=== PATIENT | male | born 1990 | race African-American/Black ===

== ENCOUNTER 2016-12-06 08:16 | Emergency (ER) | payer SELFPAY | END 2016-12-06 09:45 | disposition home or self-care (01) | LOC: D.ER 08:16 | DX: S29.9XXA Unspecified injury of thorax, initial encounter (principal); V89.2XXA Person injured in unspecified motor-vehicle accident, traffic, initial encounter; Y93.89 Activity, other specified; Y92.410 Unspecified street and highway as the place of occurrence of the external cause; M94.0 Chondrocostal junction syndrome [Tietze]; F32.9 Major depressive disorder, single episode, unspecified; E87.6 Hypokalemia; F17.200 Nicotine dependence, unspecified, uncomplicated ==

== ENCOUNTER 2017-03-01 02:21 | Emergency (ER) | payer SELFPAY | END 2017-03-01 03:20 | disposition home or self-care (01) | LOC: D.ER 02:21 | DX: S60.221A Contusion of right hand, initial encounter (principal); W22.8XXA Striking against or struck by other objects, initial encounter; Y93.89 Activity, other specified; Y92.019 Unspecified place in single-family (private) house as the place of occurrence of the external cause; S61.411A Laceration without foreign body of right hand, initial encounter; M94.0 Chondrocostal junction syndrome [Tietze]; F32.9 Major depressive disorder, single episode, unspecified; E87.6 Hypokalemia ==

== ENCOUNTER 2017-04-19 13:21 | Emergency (ER) | payer SELFPAY ==
[2017-04-19 13:58] LABS: BASOPHILS 0.5 % (0-2); EOSINOPHILS 1.7 % (0-7); HEMATOCRIT 39.9 % (42.0-54.0); HEMOGLOBIN 13.6 g/dL (13.5-17.5); IMMATURE GRANULOCYTES 0.2 % (0-5); LYMPHOCYTES 37.4 % (15-50); MCH 30.9 pg (26.0-34.0); MCHC 34.1 g/dL (31.0-37.0); MCV 90.7 fL (80.0-100.0); MEAN PLATELET VOLUME 10.1 fL (7.4-10.4); NEUTROPHILS 53.2 % (40-80); RDW 13.5 % (11.5-14.5)
[2017-04-19 14:10] LABS: PLATELET COUNT 194 10x3/uL (130-400)
[2017-04-19 14:14] LABS: ALBUMIN 3.8 g/dL (3.4-5.0); ANION GAP 12.8 mmol/L (8-16); BILIRUBIN - TOTAL 0.73 mg/dL (0.2-1.3); CARBON DIOXIDE 25.4 mmol/L (21.0-32.0); CREATININE - SERUM 1.3 mg/dL (0.6-1.3); POTASSIUM - SERUM 3.2 mmol/L (3.5-5.1); PROTEIN - SERUM 7.2 g/dL (6.4-8.2)
== END 2017-04-19 16:38 | disposition home or self-care (01) ==
LOC: D.ER 13:21
PROVIDERS: Emergency Medicine
DX: R55 Syncope and collapse (principal); R00.1 Bradycardia, unspecified; E87.6 Hypokalemia; F32.9 Major depressive disorder, single episode, unspecified

== ENCOUNTER → 2017-06-18 15:06 | Emergency (ER) | payer SELFPAY | END | disposition left against medical advice (07) | LOC: D.ER 15:06 | DX: Z02.9 Encounter for administrative examinations, unspecified (principal) ==

== ENCOUNTER 2017-06-28 09:03 | Emergency (ER) | payer SELFPAY | END 2017-06-28 11:18 | disposition home or self-care (01) | LOC: D.ER 09:03 | DX: K02.9 Dental caries, unspecified (principal); K08.89 Other specified disorders of teeth and supporting structures; F17.200 Nicotine dependence, unspecified, uncomplicated ==

== ENCOUNTER 2017-07-29 19:03 | Emergency (ER) | payer SELFPAY ==
[2017-07-29 20:26] LABS: BASOPHILS 0.2 % (0-2); EOSINOPHILS 0 % (0-7); HEMATOCRIT 38.7 % (42.0-54.0); HEMOGLOBIN 13.2 g/dL (13.5-17.5); IMMATURE GRANULOCYTES 0.2 % (0-5); LYMPHOCYTES 15.1 % (15-50); MCH 31.1 pg (26.0-34.0); MCHC 34.1 g/dL (31.0-37.0); MCV 91.1 fL (80.0-100.0); MEAN PLATELET VOLUME 10.2 fL (7.4-10.4); NEUTROPHILS 71.5 % (40-80); PLATELET COUNT 159 10x3/uL (130-400); RBC 4.25 10x6/uL (4.20-6.10); RDW 13.9 % (11.5-14.5); WBC 9.5 10x3/uL (4.8-10.8)
[2017-07-29 20:33] LABS: INR 1.3 (0.85-1.17); PROTIME 16.1 SECONDS (11.6-15.0)
[2017-07-29 20:36] LABS: ALBUMIN 3.5 g/dL (3.4-5.0); ANION GAP 12.1 mmol/L (8-16); BILIRUBIN - TOTAL 0.44 mg/dL (0.2-1.3); CALCIUM 8.5 mg/dL (8.5-10.1); CARBON DIOXIDE 25.4 mmol/L (21.0-32.0); CREATININE - SERUM 1.5 mg/dL (0.6-1.3); MAGNESIUM - SERUM 1.6 mg/dL (1.8-2.4); POTASSIUM - SERUM 3.5 mmol/L (3.5-5.1); PROTEIN - SERUM 7.3 g/dL (6.4-8.2)
[2017-07-29 21:37] LABS: APPEARANCE CLEAR (CLEAR); BACTERIA FEW /hpf (NONE SEEN); BILIRUBIN NEGATIVE (NEGATIVE); COLOR DK YELLOW (YELLOW); EPITHELIAL CELLS 0-5 /hpf (0-5); GLUCOSE NEGATIVE (NEGATIVE); KETONE NEGATIVE (NEGATIVE); LEUKOCYTE ESTERASE 1+ (NEGATIVE); MUCUS <1+ /lpf (NONE SEEN); NITRITE NEGATIVE (NEGATIVE); PROTEIN NEGATIVE (NEGATIVE); RED CELLS - URINE 0-5 /hpf (0-5); SPECIFIC GRAVITY 1.005 (1.005-1.020); WHITE CELLS - URINE 25-50 /hpf (0-5)
== END 2017-07-29 23:16 | disposition home or self-care (01) ==
LOC: D.ER 19:03
PROVIDERS: Emergency Medicine; Nurse Practitioner Family
DX: J18.9 Pneumonia, unspecified organism (principal); R50.9 Fever, unspecified

== ENCOUNTER 2017-10-02 19:43 | Emergency (ER) | payer SELFPAY | END 2017-10-02 20:20 | disposition home or self-care (01) | LOC: D.ER 19:43 | DX: R07.9 Chest pain, unspecified (principal); K08.89 Other specified disorders of teeth and supporting structures; F17.200 Nicotine dependence, unspecified, uncomplicated; R00.1 Bradycardia, unspecified ==

== ENCOUNTER 2017-11-19 20:14 | Emergency (ER) | payer SELFPAY | END 2017-11-19 21:26 | disposition home or self-care (01) | LOC: D.ER 20:14 | DX: G89.18 Other acute postprocedural pain (principal); F17.200 Nicotine dependence, unspecified, uncomplicated ==

== ENCOUNTER 2017-12-25 12:34 | Emergency (ER) | payer MEDICAID | END 2017-12-25 16:04 | disposition home or self-care (01) | LOC: D.ER 12:34 | DX: K08.89 Other specified disorders of teeth and supporting structures (principal); K05.30 Chronic periodontitis, unspecified; F17.200 Nicotine dependence, unspecified, uncomplicated ==

== ENCOUNTER 2018-01-21 21:07 | Emergency (ER) | payer MEDICAID | END 2018-01-21 22:33 | disposition home or self-care (01) | LOC: D.ER 21:07 | DX: K04.7 Periapical abscess without sinus (principal); K08.89 Other specified disorders of teeth and supporting structures; F17.200 Nicotine dependence, unspecified, uncomplicated ==

== ENCOUNTER 2018-06-16 21:40 | Emergency (ER) | payer SELFPAY ==
[~2018-06-16] VITALS: Ht 193 cm; Wt 93.2 kg
[2018-06-16 21:44] VITALS: Ht 193 cm; Wt 93.2 kg
[2018-06-16] MEDS ORDERED: TORADOL10 MG PO (22:50)
[2018-06-16 23:06] VITALS: BP 130/67
== END 2018-06-16 23:05 | disposition home or self-care (01) ==
LOC: D.ER 21:40
DX: S60.221A Contusion of right hand, initial encounter (principal); X58.XXXA Exposure to other specified factors, initial encounter; Y93.89 Activity, other specified; Y92.019 Unspecified place in single-family (private) house as the place of occurrence of the external cause

== ENCOUNTER 2018-06-29 22:40 | Emergency (ER) | payer SELFPAY ==
[~2018-06-29] VITALS: Ht 193 cm; Wt 84.1 kg
[~2018-06-29 22:40] MED LIST: TORADOL10 MG PO
[2018-06-29 22:52] VITALS: Ht 193 cm; Wt 84.1 kg
[2018-06-30] MEDS ORDERED: MUCUS RELIEF400 MG PO (01:12)
[2018-06-30] MEDS ORDERED: ZPAK PO (01:12)
[2018-06-30] MEDS ORDERED: PROAIR HFA8.5 GM INH (01:12)
[2018-06-30 01:31] VITALS: BP 126/69
== END 2018-06-30 01:31 | disposition home or self-care (01) ==
LOC: D.ER 22:40
DX: J40 Bronchitis, not specified as acute or chronic (principal); R09.89 Other specified symptoms and signs involving the circulatory and respiratory systems

== ENCOUNTER 2018-11-27 17:42 | Emergency (ER) | payer SELFPAY ==
[~2018-11-27] VITALS: Ht 193 cm; Wt 93.2 kg
[~2018-11-27 17:42] MED LIST changes: +MUCUS RELIEF400 MG PO; +PROAIR HFA8.5 GM INH; +ZPAK PO
[2018-11-27 18:18] VITALS: Ht 193 cm; Wt 93.2 kg
[2018-11-27] MEDS ORDERED: AMOXICILLIN875 MG PO (19:39)
[2018-11-27] MEDS ORDERED: CIPRODEX OTIC7.5 ML LEFT EAR (19:39)
[2018-11-27 19:59] VITALS: BP 118/62
== END 2018-11-27 20:00 | disposition home or self-care (01) ==
LOC: D.ER 17:42
DX: H92.02 Otalgia, left ear (principal); J02.9 Acute pharyngitis, unspecified

== ENCOUNTER 2019-05-04 17:38 | Emergency (ER) | payer SELFPAY ==
[~2019-05-04 17:38] MED LIST changes: +AMOXICILLIN875 MG PO; +CIPRODEX OTIC7.5 ML LEFT EAR
[2019-05-04 18:18] VITALS: BMI 25.0
[2019-05-04] MEDS ORDERED: TORADOL10 MG PO (21:13)
[2019-05-04] MEDS ORDERED: ROBAXIN500 MG PO (21:13)
[2019-05-04 21:33] VITALS: BP 117/90
== END 2019-05-04 21:34 | disposition home or self-care (01) ==
LOC: D.ER 17:38
DX: S16.1XXA Strain of muscle, fascia and tendon at neck level, initial encounter (principal); V43.62XA Car passenger injured in collision with other type car in traffic accident, initial encounter; Y93.89 Activity, other specified; Y92.410 Unspecified street and highway as the place of occurrence of the external cause; S29.012A Strain of muscle and tendon of back wall of thorax, initial encounter

== ENCOUNTER 2019-05-07 01:03 | Emergency (ER) | payer SELFPAY ==
[~2019-05-07] VITALS: Ht 193 cm; Wt 93.2 kg
[~2019-05-07 01:03] MED LIST changes: +ROBAXIN500 MG PO
[2019-05-07 01:06] VITALS: Ht 193 cm; Wt 93.2 kg
[2019-05-07 01:29] VITALS: BP 122/74
== END 2019-05-07 01:32 | disposition home or self-care (01) ==
LOC: D.ER 01:03
DX: S16.1XXA Strain of muscle, fascia and tendon at neck level, initial encounter (principal); V49.9XXA Car occupant (driver) (passenger) injured in unspecified traffic accident, initial encounter; F17.210 Nicotine dependence, cigarettes, uncomplicated; F41.9 Anxiety disorder, unspecified

== ENCOUNTER 2019-11-11 21:46 | Emergency (ER) | payer SELFPAY ==
[~2019-11-11] VITALS: Ht 193 cm; Wt 97.7 kg
[2019-11-11 21:50] VITALS: Ht 193 cm; Wt 97.7 kg
[2019-11-11 22:15] LABS: APPEARANCE CLEAR (CLEAR); BILIRUBIN NEGATIVE (NEGATIVE); COLOR YELLOW (YELLOW); GLUCOSE NEGATIVE (NEGATIVE); KETONE NEGATIVE (NEGATIVE); NITRITE NEGATIVE (NEGATIVE); PROTEIN NEGATIVE (NEGATIVE); UROBILINOGEN NORMAL (NORMAL)
[2019-11-11] MEDS ORDERED: FLUTICASONE PRO16 GM NASAL (22:28)
[2019-11-11] MEDS ORDERED: TESSALON PERLE100 MG PO (22:28)
[2019-11-11 23:09] VITALS: BP 125/78
== END 2019-11-11 23:14 | disposition home or self-care (01) ==
LOC: D.ER 21:46
PROVIDERS: Family Medicine
DX: B34.9 Viral infection, unspecified (principal)

== ENCOUNTER 2019-11-19 05:19 | Emergency (ER) | payer SELFPAY ==
[~2019-11-19] VITALS: Ht 193 cm; Wt 95.5 kg
[~2019-11-19 05:19] MED LIST changes: +FLUTICASONE PRO16 GM NASAL; +TESSALON PERLE100 MG PO
[2019-11-19 05:22] VITALS: Ht 193 cm; Wt 95.5 kg
[2019-11-19 05:42] LABS: APPEARANCE CLEAR (CLEAR); BILIRUBIN NEGATIVE (NEGATIVE); COLOR COLORLESS (YELLOW); GLUCOSE NEGATIVE (NEGATIVE); KETONE NEGATIVE (NEGATIVE); NITRITE NEGATIVE (NEGATIVE); PROTEIN NEGATIVE (NEGATIVE); SPECIFIC GRAVITY 1.005 (1.005-1.020); UROBILINOGEN NORMAL (NORMAL)
[2019-11-19 05:47] LABS: UDS - AMPHET NEGATIVE QUAL (NEGATIVE); UDS - BARB NEGATIVE QUAL (NEGATIVE); UDS - BENZO NEGATIVE QUAL (NEGATIVE); UDS - COCAINE NEGATIVE QUAL (NEGATIVE); UDS - OPIATE NEGATIVE QUAL (NEGATIVE); UDS - PCP NEGATIVE QUAL (NEGATIVE); UDS - THC POSITIVE QUAL (NEGATIVE)
[2019-11-19 06:24] LABS: BASOPHILS 0.3 % (0-2); EOSINOPHILS 5.3 % (0-7); HEMATOCRIT 39.5 % (42.0-54.0); IMMATURE GRANULOCYTES 0.2 % (0-5); LYMPHOCYTES 40.1 % (15-50); MCH 30.4 pg (26.0-34.0); MCHC 32.9 g/dL (31.0-37.0); MCV 92.5 fL (80.0-100.0); MEAN PLATELET VOLUME 9.4 fL (7.4-10.4); MONOCYTES 8.6 % (2-11); NEUTROPHILS 45.5 % (40-80); RBC 4.27 10x6/uL (4.20-6.10); RDW 13.8 % (11.5-14.5)
[2019-11-19 06:41] LABS: CALC OSMOLALITY 286 mosm/kg (275-300); CALCIUM 8.7 mg/dL (8.5-10.1); CARBON DIOXIDE 26.6 mmol/L (21.0-32.0); CHLORIDE - SERUM 108 mmol/L (98-107); CREATININE - SERUM 1.1 mg/dL (0.6-1.3); GLUCOSE 132 mg/dL (74-106); POTASSIUM - SERUM 3.6 mmol/L (3.5-5.1); SODIUM 143 mmol/L (136-145); UREA NITROGEN 12 mg/dL (7-18); eGFR NON AFRICAN AMERICAN 85 mL/min (90-120)
[2019-11-19 06:50] LABS: PLATELET COUNT 222 10x3/uL (130-400)
[2019-11-19 06:57] LABS: ALBUMIN 3.3 g/dL (3.4-5.0); ALKALINE PHOSPHATASE 61 U/L (46-116); ALT (SGPT) 24 U/L (10-68); BILIRUBIN - TOTAL 0.15 mg/dL (0.2-1.3); CKMB 0.8 U/L (0.0-3.6); CREATINE KINASE 372 UL (21-232); PROTEIN - SERUM 6.7 g/dL (6.4-8.2)
[2019-11-19 06:58] LABS: TROPONIN-I < 0.017 ng/mL (0.000-0.060)
[2019-11-19] MEDS ORDERED: PROTONIX40 MG PO (08:04)
[2019-11-19 08:15] VITALS: BP 109/55
== END 2019-11-19 08:16 | disposition home or self-care (01) ==
LOC: D.ER 05:19
PROVIDERS: Family Medicine
DX: R07.9 Chest pain, unspecified (principal); K21.9 Gastro-esophageal reflux disease without esophagitis

== ENCOUNTER 2020-02-10 09:50 | Emergency (ER) | payer MEDICAID ==
[~2020-02-10] VITALS: Ht 193 cm; Wt 97.7 kg
[~2020-02-10 09:50] MED LIST changes: +PROTONIX40 MG PO
[2020-02-10 09:55] VITALS: Ht 193 cm; Wt 97.7 kg
[2020-02-10 11:01] VITALS: BP 131/79
== END 2020-02-10 11:04 | disposition home or self-care (01) ==
LOC: D.ER 09:50
DX: S60.221A Contusion of right hand, initial encounter (principal); S60.419A Abrasion of unspecified finger, initial encounter; X58.XXXA Exposure to other specified factors, initial encounter; M79.641 Pain in right hand

== ENCOUNTER 2020-08-14 16:37 | Observation (INO) | payer MEDICAID ==
[~2020-08-14] VITALS: Ht 193 cm; Wt 102.1 kg
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
--- NOTE | 2020-08-14 18:17 | NUR ---
URINE SAMPLE OBTAINED AND GIVEN TO COLD MOLDING PRESS OPERATOR
--- NOTE | 2020-08-14 18:18 | NUR ---
IV ESTABLISHED 20 LEFT AC. BLOOD OBTAINED AND HANDED TO MEMORY CARE PROGRAM RESIDENT.
[2020-08-14 18:25] LABS: BASOPHILS 0.8 % (0-2); HEMOGLOBIN 13.3 g/dL (13.5-17.5); IMMATURE GRANULOCYTES 0.5 % (0-5); MCHC 33.3 g/dL (31.0-37.0); MCV 93.2 fL (80.0-100.0); MEAN PLATELET VOLUME 9.9 fL (7.4-10.4); MONOCYTES 12.6 % (2-11); NEUTROPHILS 53.1 % (40-80); PLATELET COUNT 178 10x3/uL (130-400); RBC 4.29 10x6/uL (4.20-6.10); WBC 6.1 10x3/uL (4.8-10.8)
[2020-08-14 18:36] LABS: NITRITE NEGATIVE (NEGATIVE)
[2020-08-14 18:37] LABS: BILIRUBIN NEGATIVE (NEGATIVE); KETONE NEGATIVE (NEGATIVE); UROBILINOGEN NORMAL mg/dL (< 2)
[2020-08-14 18:38] LABS: BACTERIA FEW HPF (NONE SEEN); WHITE CELLS - URINE 0-5 HPF (0-1)
--- NOTE | 2020-08-14 18:42 | NUR ---
wound cultures sent to lab
[2020-08-14 18:54] LABS: CALC OSMOLALITY 278 mosm/kg (275-300); CALCIUM 8.6 mg/dL (8.5-10.1); CARBON DIOXIDE 29.4 mmol/L (21.0-32.0); CHLORIDE - SERUM 107 mmol/L (98-107); POTASSIUM - SERUM 4.4 mmol/L (3.5-5.1); SODIUM 140 mmol/L (136-145); UREA NITROGEN 14 mg/dL (7-18); eGFR NON AFRICAN AMERICAN > 90 mL/min (90-120)
[2020-08-14 18:58] LABS: GLUCOSE 72 mg/dL (74-106)
[2020-08-14 19:01] LABS: ALBUMIN 3.2 g/dL (3.4-5.0); ALKALINE PHOSPHATASE 63 U/L (30-120); ALT (SGPT) 26 U/L (10-68); BILIRUBIN - TOTAL 0.24 mg/dL (0.2-1.3); PROTEIN - SERUM 6.8 g/dL (6.4-8.2)
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
[2020-08-15 05:10] LABS: BASOPHILS 0.6 % (0-2); EOSINOPHILS 4.6 % (0-7); HEMATOCRIT 37.9 % (42.0-54.0); HEMOGLOBIN 12.3 g/dL (13.5-17.5); IMMATURE GRANULOCYTES 0.2 % (0-5); LYMPHOCYTES 47.8 % (15-50); MCHC 32.5 g/dL (31.0-37.0); MCV 92.4 fL (80.0-100.0); MEAN PLATELET VOLUME 9.8 fL (7.4-10.4); MONOCYTES 9.2 % (2-11); NEUTROPHILS 37.6 % (40-80); PLATELET COUNT 172 10x3/uL (130-400); RDW 14.1 % (11.5-14.5); WBC 5.2 10x3/uL (4.8-10.8)
[2020-08-15 06:16] LABS: ALBUMIN 2.8 g/dL (3.4-5.0); ALKALINE PHOSPHATASE 51 U/L (30-120); BILIRUBIN - TOTAL 0.11 mg/dL (0.2-1.3); CALC OSMOLALITY 277 mosm/kg (275-300); CALCIUM 8.1 mg/dL (8.5-10.1); CARBON DIOXIDE 24.3 mmol/L (21.0-32.0); CHLORIDE - SERUM 108 mmol/L (98-107); GLUCOSE 87 mg/dL (74-106); POTASSIUM - SERUM 3.9 mmol/L (3.5-5.1); SODIUM 139 mmol/L (136-145); UREA NITROGEN 14 mg/dL (7-18); eGFR NON AFRICAN AMERICAN > 90 mL/min (90-120)
[2020-08-15 06:17] LABS: ALT (SGPT) 19 U/L (10-68)
--- NOTE | 2020-08-15 11:31 | NUR ---
VANCOMYCIN INFUSION COMPLETE.
--- NOTE | 2020-08-15 12:31 | NUR ---
15 NS STOP TIME IS 1230
[2020-08-15 13:17] VITALS: BP 137/78; Ht 193 cm; Wt 102.1 kg
--- NOTE | 2020-08-15 16:36 | NUR ---
PATIENT STATES HE IS IN PAIN 10 ON 0-10 SCALE. NO GRIMACING NOTED. VITAL SIGNS ARE 123/67 97% RA AND 52 HR. PATIENT SLEEPING. HAVING TO WAKE HIM UP TO ANSWER PAIN SCALE. FALLS BACK ASLEEP SOON WOKEN UP. ANSWERS QUESTIONS APPROPRIATELY.
--- NOTE | 2020-08-15 17:40 | NUR ---
1740 IV REMOVED AND INSTRUCTIONS GIVEN
== END 2020-08-15 18:20 | disposition home or self-care (01) ==
LOC: D.ER 16:37 → D.EDHOLD 18:55 → OBSVTIME 18:55 → D.SDCHOLD 08-15 12:49
PROVIDERS: Family Medicine; ADMIT Family Medicine Adult Medicine; ATTEND Family Medicine Adult Medicine
DX: L02.511 Cutaneous abscess of right hand (principal); F17.200 Nicotine dependence, unspecified, uncomplicated; D64.9 Anemia, unspecified; M79.641 Pain in right hand

== ENCOUNTER 2021-02-07 18:36 | Emergency (ER) | payer MEDICAID ==
[~2021-02-07] VITALS: Ht 193 cm; Wt 102.3 kg
[2021-02-07 18:50] VITALS: Ht 193 cm; Wt 102.3 kg
[2021-02-07 20:12] VITALS: BP 121/69
== END 2021-02-07 20:13 | disposition home or self-care (01) ==
LOC: D.ER 18:36
DX: S02.5XXA Fracture of tooth (traumatic), initial encounter for closed fracture (principal)

== ENCOUNTER 2021-04-12 17:53 | Emergency (ER) | payer OTHER ==
[~2021-04-12] VITALS: Ht 193 cm; Wt 95.5 kg
[2021-04-12 17:55] VITALS: Ht 193 cm; Wt 95.5 kg
[2021-04-12] MEDS ORDERED: KLONOPIN0.5 MG PO (19:09)
[2021-04-12 19:22] VITALS: BP 142/81
== END 2021-04-12 19:22 | disposition home or self-care (01) ==
LOC: D.ER 17:53
DX: F41.8 Other specified anxiety disorders (principal); F41.0 Panic disorder [episodic paroxysmal anxiety]